=== PATIENT | female | born 1960 | race Caucasian/White ===

== ENCOUNTER → 2024-03-02 13:55 | Outpatient (CLI) | payer OTHER, SELFPAY ==
--- NOTE | 2024-03-03 09:18 | DIET.OUTPTC ---
Dietary Outpatient Consultation Note Consultation Date: 03/02/2024 Assessment: 63 y F referred to dietitian for prediabetes, pure hypercholesterolemia, BMI 34.0-34.9. Amy is motivated to make changes to lower A1c%. Has done weight watchers in past after having children, which lasted in weight loss that was unable to be sustained. Has started parking car further from entrance at work to get extra 15 minutes of movement in 4x/wk. Diet recall: B-plain [place] yogurt (2/3 c) + 2/3 c homemade granola + 2/3 c blueberries, coffee w/ 1tbsp half and half L-options at cafe at work or leftovers (salad + protein or 2 sl bread+cheese + hummus and veg D- beans, rice, salad or meat, rice/potato 1c + salad or other no-starch veg (2c) post dinner snack ~2 h later- fruit Doesn't do dessert at home, but will have cookie from work 2-3x/wk mid day Cooks meals with olive oil, no butter A1c on 12/15/23: 5.9% LDL 108 12/15/23 Ht: 5 ft 6.75 in Wt: 217 lb BMI: 34 UBW: 215 lb Nutrition Diagnosis: Physical inactivity r/t sedentary job, stages of change aeb <150 minutes of moderate intensity activity per week Interventions: 1. Discussed balanced pre-DM plate method, CHO portions, amounts per meal and snacks, macro nutrient distribution 2. Fiber, amount, types 3. Activity and barriers 4. Intuitive eating 5. Realistic weight loss goal (5% or 10-11 lb in 6 months) Goals- 1. Additional 15-30 minutes activity 3x/wk through exercise video in basement after work when dark or walk on weekend with support from partner 2. 30-45 g CHO at dinner (2/3-1c) 3. Cutting back (1/4-1/3 amount) of added sugar in homemade granola EER: 30-45 g CHO at meals, 15-30 g CHO at snacks, goal 45-50% CHO of EER = 11-13 servings CHO/day Monitoring/Evaluations: f/u 2-3 months Electronically Signed by: Jennie Melgar 03/03/24 09:[address] [id number]
== END ==
PROVIDERS: PCP Family Medicine; Referring Provider Family Medicine
DX: R73.03 Prediabetes (principal); E78.00 Pure hypercholesterolemia, unspecified; Z68.34 Body mass index [BMI] 34.0-34.9, adult
CPT/HCPCS: 97802

== ENCOUNTER → 2024-05-12 15:25 | Outpatient (CLI) | payer OTHER, SELFPAY ==
--- NOTE | 2024-05-12 15:27 | DI.MG.S_ITS ---
BILATERAL DIGITAL SCREENING MAMMOGRAM 3D/2D WITH CAD: 05/12/2024 CLINICAL: Routine screening. Family history of breast cancer. Comparison is made to exams dated: 04/14/2023 mammogram, 03/25/2022 mammogram, and 03/04/2021 mammogram - outside facility. The breasts are almost entirely fatty (category a/<25% glandular tissue). Current study was also evaluated with a Computer Aided Detection (CAD) system. There are benign calcifications in the right breast. No significant masses, calcifications, or other findings are seen in either breast. There has been no significant interval change. IMPRESSION: BENIGN There is no mammographic evidence of malignancy. A 1 year screening mammogram is recommended. Based on the Tyrer Cuzick model (a risk assessment model) the patient's lifetime risk is 5.2% and her 10 year risk is 2.1%. According to the ACR, ACS, and NCCN guidelines, an annual breast MRI exam along with mammogram is recommended if the patient's lifetime risk is 20% or greater. This exam was interpreted at Station ID: [id number]. NOTE: For mammograms, a report in lay terms will be sent to the patient. Approximately 15% of breast malignancies will not be visualized mammographically. In the management of a palpable breast mass, a negative mammogram must not discourage biopsy of a clinically suspicious lesion. Electronically Signed By: Rossi leach/[email or web address]:05/12/2024 17:13:55 letter sent: Normal Exam ACR BI-RADS Category 2: Benign
== END ==
PROVIDERS: PCP Family Medicine; Referring Provider Family Medicine; Visit Provider Family Medicine
DX: Z12.31 Encounter for screening mammogram for malignant neoplasm of breast (principal); Z80.3 Family history of malignant neoplasm of breast; R92.313 Mammographic fatty tissue density, bilateral breasts
CPT/HCPCS: 77063; 77067